=== PATIENT | female | born 1950 | race Caucasian/White ===

== ENCOUNTER → 2021-11-29 | Outpatient (CLI) | payer MEDICARE | END | disposition home or self-care (01) | LOC: LABWHC1 14:41 | PROVIDERS: ATTEND Family Medicine | DX: E83.52 Hypercalcemia (principal) | CPT/HCPCS: 36415; 82330; 83970 ==

== ENCOUNTER → 2022-07-20 | Outpatient (CLI) | payer MEDICARE ==
--- NOTE | 2022-07-20 15:20 | US ---
EXAMINATION TYPE: US thyroid st tissue head/neck DATE OF EXAM: 07/20/2022 COMPARISON: NONE CLINICAL HISTORY: E21.0 PRIMARY HYPERPARATHYROIDISM. elevated calcium GLAND SIZE: Right Lobe: 5.0 x 1.2 x 2.3 cm Overall Parenchyma: homogenous Left Lobe: 4.8 x 1.2 x 1.6 cm Overall Parenchyma: homogeneous Isthmus Thickness: 0.2 cm NODULES RIGHT: # of nodules measured on right: 1 1. 1.1 X 0.9 x 0.6 cm, lower , mixed cystic and solid, hypoechoic nodule, which is wider than tall, with smooth margins, without echogenic foci. Prior size: [employer] LEFT: # of nodules measured on left: 0 Bilateral neck scanned, no evidence of lymphadenopathy. Parathyroid seen on the left 1.1 x 0.6 x 0.8cm IMPRESSION: Nonspecific right thyroid nodule. Parathyroid adenoma not excluded.
== END | disposition home or self-care (01) ==
LOC: RADUSWWP 14:49
PROVIDERS: ATTEND Internal Medicine Endocrinology, Diabetes & Metabolism
DX: E04.1 Nontoxic single thyroid nodule (principal); E21.0 Primary hyperparathyroidism
CPT/HCPCS: 76536

== ENCOUNTER → 2022-08-20 | Outpatient (CLI) | payer MEDICARE ==
[2022-08-21 00:22] LABS: African American GFR (CKD) 74.6 (60.0-200.0); Albumin 4.4 g/dL (3.8-4.9); Albumin/Globulin Ratio 1.69 (1.60-3.17); Anion Gap 9.4 mmol/L (10.00-18.00); BUN/Creat Ratio 16.56 Ratio (12.00-20.00); Blood Urea Nitrogen 14.9 mg/dL (9.0-27.0); Calcium 10.7 mg/dL (8.7-10.3); Carbon Dioxide 27.6 mmol/L (20.0-27.5); Globulin 2.6 g/dL (1.6-3.3); Non-African American GFR(CKD) 64.3 (60.0-200.0); Potassium 4.9 mmol/L (3.5-5.5); Total Bilirubin 0.3 mg/dL (0.30-1.20)
== END | disposition home or self-care (01) ==
LOC: LABWHC1 14:08
PROVIDERS: ATTEND Internal Medicine Endocrinology, Diabetes & Metabolism
DX: E21.0 Primary hyperparathyroidism (principal)
CPT/HCPCS: 36415; 80053; 82306; 83970

== ENCOUNTER → 2022-09-18 | Outpatient (CLI) | payer MEDICARE ==
[2022-09-19 00:44] LABS: INR 0.85 (0.90-1.11); Prothrombin Time 9.7 sec (9.9-11.9)
[2022-09-19 05:11] LABS: African American GFR (CKD) 77.4 (60.0-200.0); Albumin 4.4 g/dL (3.8-4.9); Albumin/Globulin Ratio 1.6 (1.60-3.17); Anion Gap 11.8 mmol/L (10.00-18.00); BUN/Creat Ratio 19.47 Ratio (12.00-20.00); Calcium 11.2 mg/dL (8.7-10.3); Carbon Dioxide 24.7 mmol/L (20.0-27.5); Globulin 2.7 g/dL (1.6-3.3); Non-African American GFR(CKD) 66.7 (60.0-200.0); Total Bilirubin 0.4 mg/dL (0.30-1.20); Total Protein 7.1 g/dL (6.2-8.2)
== END | disposition home or self-care (01) ==
LOC: LABWHC1 14:47
PROVIDERS: ATTEND Internal Medicine Endocrinology, Diabetes & Metabolism
DX: E21.0 Primary hyperparathyroidism (principal)
CPT/HCPCS: 36415; 80053; 82306; 85610

== ENCOUNTER → 2023-02-12 | Outpatient (CLI) | payer MEDICARE ==
[2023-02-12 16:11] LABS: ALT 15 U/L; AST 18 U/L; Albumin 4.1 d/dL; Albumin/Globulin Ratio 1.64 Ratio; Alkaline Phosphatase 82 U/L; BUN/Creat Ratio 12.62 Ratio; Blood Urea Nitrogen 10.1 mg/dL; Calcium 9.5 mg/dL; Carbon Dioxide 25.6 mmol/L; Chloride 107 mmol/L; Chol/HDL Ratio 3.18 Ratio; Globulin 2.5 d/dL; Glucose 92 mg/dL; LDL Cholesterol,Calculated 143.9 mg/dL; Potassium 4.8 mmol/L; Sodium 140 mmol/L; Total Bilirubin 0.7 mg/dL; Total Protein 6.6 d/dL
== END | disposition home or self-care (01) ==
LOC: LABWHC1 08:12
PROVIDERS: ATTEND Internal Medicine Endocrinology, Diabetes & Metabolism
DX: Z13.220 Encounter for screening for lipoid disorders (principal); E21.0 Primary hyperparathyroidism
CPT/HCPCS: 36415; 80053; 80061; 82306; 83970

== ENCOUNTER → 2023-10-09 | Outpatient (CLI) | payer MEDICARE ==
[2023-10-09 16:27] LABS: Blood Urea Nitrogen 9.6 mg/dL (9.0-27.0); Chloride 112 mmol/L (96-109); Chol/HDL Ratio 2.74 Ratio; Glucose 85 mg/dL (70-110); LDL Cholesterol,Calculated 127.1 mg/dL (0.0-131.0); Potassium 4.6 mmol/L (3.5-5.5); Sodium 149 mmol/L (135-145)
[2023-10-09 16:28] LABS: ALT 14 U/L (8-44); AST 22 U/L (13-35); Albumin 4.1 g/dL (3.8-4.9); Albumin/Globulin Ratio 1.64 Ratio (1.60-3.17); Alkaline Phosphatase 73 U/L (41-126); Calcium 9.4 mg/dL (8.7-10.3); Globulin 2.5 g/dL (1.6-3.3); Total Bilirubin 0.6 mg/dL (0.3-1.2); Total Protein 6.6 g/dL (6.2-8.2)
== END | disposition home or self-care (01) ==
LOC: LABWHC1 09:30
PROVIDERS: ATTEND Internal Medicine Endocrinology, Diabetes & Metabolism
DX: E21.0 Primary hyperparathyroidism (principal); E78.2 Mixed hyperlipidemia; M81.0 Age-related osteoporosis without current pathological fracture
CPT/HCPCS: 36415; 80053; 80061; 82306; 82523; 83970; 84443

== ENCOUNTER → 2024-02-19 | Outpatient (CLI) | payer MEDICARE ==
[2024-02-19 18:49] LABS: ALT 13 U/L (8-44); AST 21 U/L (13-35); Albumin/Globulin Ratio 1.54 Ratio (1.60-3.17); Alkaline Phosphatase 76 U/L (41-126); Blood Urea Nitrogen 10.8 mg/dL (9.0-27.0); Calcium 9.4 mg/dL (8.7-10.3); Carbon Dioxide 24.4 mmol/L (21.6-31.8); Chloride 104 mmol/L (96-109); Globulin 2.6 g/dL (1.6-3.3); Glucose 97 mg/dL (70-110); Potassium 4.6 mmol/L (3.5-5.5); Sodium 139 mmol/L (135-145); Total Bilirubin 0.5 mg/dL (0.3-1.2); Total Protein 6.6 g/dL (6.2-8.2)
[2024-02-19 19:15] LABS: C-Peptide 2.82 ng/mL (0.81-3.85)
== END | disposition home or self-care (01) ==
LOC: LABWHC1 08:26
PROVIDERS: ATTEND Internal Medicine Endocrinology, Diabetes & Metabolism
DX: M81.0 Age-related osteoporosis without current pathological fracture (principal)
CPT/HCPCS: 36415; 80053; 82306; 83970; 84166; 84681

== ENCOUNTER → 2024-08-14 | Outpatient (CLI) | payer MEDICARE ==
--- NOTE | 2024-08-14 08:38 | US ---
EXAMINATION TYPE: US abdomen complete DATE OF EXAM: 08/14/2024 COMPARISON: NONE CLINICAL INDICATION: Female, 74 years old with history of R10.10 UPPER ABDOMINAL PAIN, UNSPECIFIED; TECHNIQUE: Grayscale and color Doppler imaging of the abdomen was performed. FINDINGS: EXAM MEASUREMENTS: Liver Length: 13.6 cm Gallbladder Wall: 0.2 cm CBD: 0.3 cm Right Kidney: 9.0 x 4.5 x 4.3 cm Pancreas: visualized portions wnl, limited by overlying midline bowel gas Liver: wnl Gallbladder: wnl Evidence for sonographic Wiley's sign: no CBD: wnl Right Kidney: wnl The liver is homogenous. The intrahepatic portion of the IVC and proximal abdominal aorta are within normal limits. There is no evidence of cholelithiasis. Common bile duct is unremarkable. The visu alized portions of the pancreas are homogenous. The spleen is unremarkable. Kidneys are symmetric a nd free of hydronephrosis. No renal lesions are seen. IMPRESSION: No evidence for acute process. [facility], , 08/14/2024 8:36 AM
--- NOTE | 2024-08-14 09:38 | FL ---
EXAMINATION TYPE: FL barium swallow DATE OF EXAM: 08/14/2024 8:36 AM COMPARISON: Chest radiograph from same day. CLINICAL INDICATION:Female, 74 years old with history of R10.10 UPPER ABDOMINAL PAIN, UNSPECIFIED; PH H, TECHNIQUE: The procedure was explained and patient history elicited. All patient questions were ans wered prior to start of procedure. Multiple spot fluoroscopic images of the esophagus were obtained a fter the oral ingestion of effervescent crystals and liquid barium as the contrast agent. Fluoroscopic time:19 sec Fluoroscopic images:0 Radiographs taken: 81 DAP: NOT REPORTED [id number] FINDINGS: The esophagus demonstrates normal primary and secondary peristalsis. Tertiary contractions are seen w ith delayed emptying of the esophageal contents. Small hiatal hernia present and most pronounced when lying prone.. The esophageal mucosa is smooth without evidence of focal stricture, ulceration, or ab normal outpouching. Small gastroesophageal reflux disease was identified IMPRESSION: 1. Esophageal dysmotility worse laying prone. 2. Small hiatal hernia worse laying prone. 3. Small mild gastroesophageal reflux was identified. [facility], , 08/14/2024 9:36 AM
== END | disposition home or self-care (01) ==
LOC: RADUSWWP 07:22
PROVIDERS: ATTEND Family Medicine
DX: K21.9 Gastro-esophageal reflux disease without esophagitis (principal); K22.4 Dyskinesia of esophagus; K44.9 Diaphragmatic hernia without obstruction or gangrene
CPT/HCPCS: 74220; 76705

== ENCOUNTER → 2024-09-11 | Outpatient (CLI) | payer MEDICARE ==
[2024-09-11 16:11] LABS: ALT 13 U/L (8-44); AST 22 U/L (13-35); Albumin/Globulin Ratio 1.48 Ratio (1.60-3.17); Alkaline Phosphatase 71 U/L (41-126); BUN/Creat Ratio 13.11 Ratio (12.00-20.00); Blood Urea Nitrogen 11.8 mg/dL (9.0-27.0); Calcium 9.2 mg/dL (8.7-10.3); Carbon Dioxide 25.7 mmol/L (21.6-31.8); Chloride 106 mmol/L (96-109); Globulin 2.7 g/dL (1.6-3.3); Glucose 88 mg/dL (70-110); Potassium 4.5 mmol/L (3.5-5.5); Sodium 140 mmol/L (135-145); Total Bilirubin 0.6 mg/dL (0.3-1.2); Total Protein 6.7 g/dL (6.2-8.2)
== END | disposition home or self-care (01) ==
LOC: LABWHC1 09:07
PROVIDERS: ATTEND Internal Medicine Endocrinology, Diabetes & Metabolism
DX: M81.0 Age-related osteoporosis without current pathological fracture (principal)
CPT/HCPCS: 36415; 80053; 82306; 82523